=== PATIENT | female | born 1950 | race Caucasian/White ===

== ENCOUNTER 2021-10-28 16:33 | Emergency (ER) | payer OTHER ==
[~2021-10-28] VITALS: Ht 170.2 cm; Wt 63.5 kg
[2021-10-28] MEDS ORDERED: ATEN50TA PO (17:07)
[2021-10-28] MEDS ORDERED: VALS160T2 PO (17:07)
[2021-10-28] MEDS ORDERED: ROSU5TAB PO (17:07)
--- NOTE | 2021-10-28 17:49 | NUR ---
pt seen and examined by dr hunter. prescriptions rendered and pt discharged in stable condition.
[2021-10-28 17:50] VITALS: BP 120/82
== END 2021-10-28 17:50 | disposition home or self-care (01) ==
LOC: ER 16:40
DX: I10 Essential (primary) hypertension (principal); E78.00 Pure hypercholesterolemia, unspecified; Z76.0 Encounter for issue of repeat prescription
CPT/HCPCS: A4663